=== PATIENT | female | born 1995 | race Two or more races ===

== ENCOUNTER 2018-07-27 18:21 | Emergency (ER) | payer MEDICAID, OTHER ==
[~2018-07-27] VITALS: Ht 152.4 cm; Wt 54.4 kg
[2018-07-27] MEDS ORDERED: IV NORMAL SALINE 500 ML BAG IV ONE (18:30)
--- NOTE | 2018-07-27 18:46 | NUR ---
Patient is resting comfortably on gurney,not crying anymore. Patient is seen using her personal electronic device, NAD. Heart rate is down to 90's/min on classroom monitor.
[2018-07-27 18:49] LABS: BASOPHILS # (AUTO) 0.1 K/uL (0.0-8.0); BASOPHILS % (AUTO) 0.6 % (0.0-2.0); EOSINOPHILS # (AUTO) 0.1 K/uL (0.0-0.7); EOSINOPHILS % (AUTO) 1.5 % (0.0-7.0); HEMOGLOBIN 14.4 g/dL (10.9-14.3); LYMPHOCYTES # (AUTO) 2.4 K/uL (20.0-40.0); LYMPHOCYTES % (AUTO) 25.4 % (20.5-51.5); MEAN CORPUSCULAR HEMOGLOBIN 29.6 uug (24.7-32.8); MEAN CORPUSCULAR HGB CONC 34 g/dL (32.3-35.6); MEAN CORPUSCULAR VOLUME 86.2 fL (75.5-95.3); MONOCYTES # (AUTO) 0.6 K/uL (2.0-10.0); MONOCYTES % (AUTO) 6.7 % (0.0-11.0); NEUTROPHILS # (AUTO) 6.3 K/uL (1.8-8.9); NEUTROPHILS % (AUTO) 65.8 % (38.5-71.5); PLATELET COUNT (AUTO) 347 K/uL (179-408); RED BLOOD CELL COUNT(AUTO) 4.88 MIL/uL (3.63-4.92); WHITE BLOOD COUNT (AUTO) 9.6 K/uL (3.8-11.8)
[2018-07-27 18:56] LABS: POTASSIUM 3.5 mmol/L (3.5-5.1)
[2018-07-27] MEDS ORDERED: LORAZEPAM 2 MG/1 ML VIAL ONE (18:59)
[2018-07-27] MEDS ORDERED: LORAZEPAM 2 MG/1 ML VIAL IV ONE (19:00)
[2018-07-27 19:02] LABS: MAGNESIUM 1.8 mg/dL (1.8-2.4)
[2018-07-27 19:03] LABS: ETHANOL < 3 MG/DL (0-0)
--- NOTE | 2018-07-27 19:14 | NUR ---
RECEIVED SHIFT REPORT FROM JEREMIE WALSH.
--- NOTE | 2018-07-27 19:24 | NUR ---
KARTHIKEYAN SALAS AT BEDSIDE.
--- NOTE | 2018-07-27 20:08 | NUR ---
Patient discharged to home in stable conditon. Written and verbal after care instructions given. Patient verbalizes understanding of instructions. PT SELF-AMBULATED WITHOUT DIFFICULTY. ALL BELONGINGS W/ PT. 20G L AC IV ACCESS REMOVED PRIOR TO DC - INNER CANNULA INTACT.
[2018-07-27 20:09] VITALS: BP 125/18
== END 2018-07-27 20:10 | disposition home or self-care (01) ==
LOC: ER 18:23
DX: F41.8 Other specified anxiety disorders (principal); F17.200 Nicotine dependence, unspecified, uncomplicated
CPT/HCPCS: 36415; 71045; 80048; 83735; 84443; 84484; 84702; 85025; 85730; 93005; 96374; 99285; G0480; J2060; 70030-TC; A4663; J7030